=== PATIENT | female | born 1940 | race Caucasian/White ===

== ENCOUNTER → 2016-08-06 | Outpatient (CLI) | payer MEDICARE ==
[~2016-08-06] MED LIST: ASPI-621 PO; ATOR40TA PO; CLOP75TA22 PO; RAMI2.5C PO
== END | disposition home or self-care (01) ==
LOC: CFH 08:03
PROVIDERS: ATTEND Internal Medicine Cardiovascular Disease
DX: I08.3 Combined rheumatic disorders of mitral, aortic and tricuspid valves (principal); I37.1 Nonrheumatic pulmonary valve insufficiency; I51.7 Cardiomegaly; Z98.61 Coronary angioplasty status; Z95.5 Presence of coronary angioplasty implant and graft
CPT/HCPCS: 93306

== ENCOUNTER → 2016-08-07 | Outpatient (CLI) | payer MEDICARE ==
[~2016-08-07] MED LIST changes: +OMNIPAQUE 350 MG/ML, 100ML BOTTLE ONE
== END | disposition home or self-care (01) ==
LOC: CFH 07:42
PROVIDERS: ATTEND Internal Medicine Cardiovascular Disease
DX: I71.4 Abdominal aortic aneurysm, without rupture (principal); R93.8 Abnormal findings on diagnostic imaging of other specified body structures
CPT/HCPCS: 74174; 93978; Q9967

== ENCOUNTER 2017-01-06 05:36 | Day surgery (SDC) | payer MEDICARE ==
[~2017-01-06] VITALS: Ht 154.9 cm; Wt 62.7 kg
[~2017-01-06 05:36] MED LIST changes: -CLOP75TA22 PO; +CLOP75TA52 PO; -OMNIPAQUE 350 MG/ML, 100ML BOTTLE ONE
[2017-01-06 06:34] VITALS: BP 137/89
[2017-01-06] MEDS ORDERED: CARV6.252 PO (06:34)
[2017-01-06] MEDS ORDERED: ATOR-2 PO (06:34)
[2017-01-06] MEDS ORDERED: BUPR150T73 PO (06:34)
[2017-01-06] MEDS ORDERED: RAMI2.5C PO (06:34)
[2017-01-06] MEDS ORDERED: MIRA25TA PO (06:34)
[2017-01-06] MEDS ORDERED: ASPI-496 PO (06:34)
[2017-01-06 07:02] LABS: HEMATOCRIT 38.2 % (34.6-47.8); HEMOGLOBIN 12.5 g/dL (11.7-16.4); WHITE BLOOD COUNT 8.3 x10^3/uL (3.4-10)
[2017-01-06 07:10] LABS: BLOOD UREA NITROGEN 30 mg/dL (7-18)
[2017-01-06] MEDS ORDERED: LIDOCAINE 2%, 20ML ONE (07:17)
[2017-01-06] MEDS ORDERED: FLUMAZENIL 0.1 MG/1 ML, 5ML ONE (07:20)
[2017-01-06] MEDS ORDERED: MIDAZOLAM 1 MG/ML, 5ML ONE (07:20)
[2017-01-06] MEDS ORDERED: FENTANYL PF 100 MCG/2ML ONE ×2 (07:20)
[2017-01-06] MEDS ORDERED: NALOXONE 1 MG/ML, 2ML ONE (07:20)
[2017-01-06] MEDS ORDERED: HEPARIN 1,000 UNITS/ML, 10ML ONE (07:20)
[2017-01-06] MEDS ORDERED: NITROGLYCERIN 5 MG/ML, 10ML ONE (07:20)
[2017-01-06] MEDS ORDERED: PROTAMINE SULFATE 10 MG/ML, 25ML ONE (07:21)
[2017-01-06] MEDS ORDERED: VISIPAQUE 270 MG/ML, 150ML BOTTLE ONE (07:30)
== END 2017-01-06 13:15 ==
LOC: OUT 05:36
PROVIDERS: ATTEND Surgery
DX: I71.4 Abdominal aortic aneurysm, without rupture (principal); I72.2 Aneurysm of renal artery; I73.9 Peripheral vascular disease, unspecified; I10 Essential (primary) hypertension; Z90.710 Acquired absence of both cervix and uterus; Z98.890 Other specified postprocedural states; Z88.8 Allergy status to other drugs, medicaments and biological substances; Z87.891 Personal history of nicotine dependence
CPT/HCPCS: 36200; 36415; 75630; 80048; 85025; 99156; 99157; C1751; C1769; C1894; J1644; J2250; J3010; J3490; Q9966; J2720; J2310

== ENCOUNTER 2017-02-23 11:02 | Inpatient (IN) | payer MEDICARE ==
[~2017-02-23] VITALS: Ht 152.4 cm; Wt 71.3 kg
[~2017-02-23 11:02] MED LIST changes: +ASPI-496 PO; +ATOR-2 PO; +BUPR150T73 PO; +CARV6.252 PO; +CEFAZOLIN 1,000 MG ONE; +GLYCOPYRROLATE 0.2MG/1ML, 5ML ONE; +MIRA25TA PO; +NEOSTIGMINE 1 MG/ML, 10ML ONE; +ONDANSETRON 2MG/ML, 2ML ONE; +PHENYLEPHRINE 10 MG/ML ONE; +PROPOFOL 10 MG/ML, 20ML ONE; +ROCURONIUM 10 MG/ML,10ML ONE
[2017-02-23] MEDS ORDERED: THROMBIN 20,000 UNIT VIAL TP ONE (11:44)
[2017-02-23] MEDS ORDERED: BACITRACIN 50,000 UNIT ONE (11:44)
[2017-02-23] MEDS ORDERED: HEPARIN 1,000 UNITS/ML, 10ML ONE ×2 (11:44→14:53)
[2017-02-23] MEDS ORDERED: PROTAMINE SULFATE 10 MG/ML, 5ML ONE ×2 (11:44→11:50)
[2017-02-23] MEDS ORDERED: LACTATED RINGERS 1,000 ML IV SCH (11:55)
[2017-02-23] MEDS ORDERED: LIDOCAINE 1%, 2ML SQ PRN (12:00)
[2017-02-23 12:12] LABS: HEMATOCRIT 36.3 % (34.6-47.8); WHITE BLOOD COUNT 6.1 x10^3/uL (3.4-10)
[2017-02-23 12:20] LABS: BLOOD UREA NITROGEN 27 mg/dL (7-18)
[2017-02-23] MEDS ORDERED: FENTANYL PF 250 MCG/5ML ONE (12:47)
[2017-02-23] MEDS ORDERED: MIDAZOLAM 1 MG/ML, 2ML ONE (12:47)
[2017-02-23] MEDS ORDERED: LIDOCAINE GEL 2%, 5ML ONE (12:48)
[2017-02-23] MEDS ORDERED: ALBUMIN HUMAN 5% 1,000 ML ONE (13:26)
[2017-02-23] MEDS ORDERED: EPINEPHRINE 1 MG/ML, 1ML ONE ×4 (14:32)
[2017-02-23] MEDS ORDERED: CALCIUM CHLORIDE 10%, 10ML SYR ONE (16:34)
[2017-02-23] MEDS ORDERED: KETAMINE 10 MG/ML, 20ML ONE (17:03)
[2017-02-23] MEDS ORDERED: NEOSTIGMINE 1 MG/ML, 10ML ONE (17:21)
[2017-02-23] MEDS ORDERED: GLYCOPYRROLATE 0.2MG/1ML, 5ML ONE (17:21)
[2017-02-23] MEDS ORDERED: FENTANYL PF 100 MCG/2ML ONE ×2 (17:55→18:32)
[2017-02-23] MEDS ORDERED: LABETALOL 5MG/ML, 20ML ONE (18:00)
[2017-02-23 18:46] LABS: HEMATOCRIT 29.9 % (34.6-47.8); HEMOGLOBIN 9.9 g/dL (11.7-16.4); WHITE BLOOD COUNT 14.5 x10^3/uL (3.4-10)
[2017-02-23 18:51] LABS: BLOOD UREA NITROGEN 21 mg/dL (7-18)
[2017-02-23] MEDS ORDERED: MEPERIDINE/PF 25MG/0.5ML IVPush PRN (19:00)
[2017-02-23] MEDS ORDERED: FENTANYL PF 100 MCG/2ML IV PRN (19:00)
[2017-02-23] MEDS ORDERED: ONDANSETRON 2MG/ML, 2ML IVPush PRN (19:00)
[2017-02-23] MEDS ORDERED: PROMETHAZINE 25 MG/ML, 1ML IV PRN (19:00)
[2017-02-23] MEDS ORDERED: DIAZEPAM 5 MG/ML, 2ML IVPush PRN (19:00)
[2017-02-23] MEDS ORDERED: ALBUTEROL/IPRATROPIUM 2.5MG/0.5MG, 3 ML NPPB PRN (19:00)
[2017-02-23] MEDS ORDERED: MIDAZOLAM 1 MG/ML, 2ML IV PRN (19:00)
[2017-02-23] MEDS ORDERED: hydrALAzine 20 MG/ML, 1ML IV PRN (19:00)
[2017-02-23] MEDS ORDERED: HYDROmorphone 1 MG/ML, 1ML IV PRN (19:00)
[2017-02-23] MEDS ORDERED: LABETALOL 5MG/ML, 20ML IV PRN (19:00)
[2017-02-23] MEDS ORDERED: LORazepam 2 MG/ML, 1ML IVPush PRN (19:00)
[2017-02-23 19:18] LABS: DIFF TOTAL CELLS COUNTED 100 CELL DIFF
[2017-02-23 19:21] LABS: ANISOCYTOSIS 1+
[2017-02-23 19:23] LABS: VERIFY COUNTS? YES
[2017-02-23] MEDS ORDERED: NITROPRUSSIDE 100 MG in DEXTROSE 5% 246 ML IV PRN (20:30)
[2017-02-23] MEDS: LABETALOL 5MG/ML 40ML VIAL IVPush PRN ×2 (20:50→21:04)
[2017-02-23] MEDS: D5%-LACTATED RINGERS 1,000 ML IV SCH (21:05)
[2017-02-23] MEDS: CEFAZOLIN PMX 1GM/50ML 50 ML IVPB SCH (21:21)
[2017-02-23] MEDS: ENOXAPARIN 40 MG/0.4 ML SQ SCH (21:22)
[2017-02-24] MEDS: D5%-LACTATED RINGERS 1,000 ML IV SCH ×2 (02:59→19:32)
[2017-02-24] MEDS: ONDANSETRON 2MG/ML, 2ML IVPush PRN ×2 (02:59→13:41)
[2017-02-24 04:00] VITALS: BP 134/70
[2017-02-24] MEDS: CEFAZOLIN PMX 1GM/50ML 50 ML IVPB SCH ×2 (04:06→13:41)
[2017-02-24 04:27] LABS: HEMATOCRIT 30.6 % (34.6-47.8); HEMOGLOBIN 10.2 g/dL (11.7-16.4); WHITE BLOOD COUNT 11.6 x10^3/uL (3.4-10)
[2017-02-24 04:32] LABS: BLOOD UREA NITROGEN 21 mg/dL (7-18)
[2017-02-24 17:30] VITALS: BP 145/79
[2017-02-24 19:05] VITALS: BP 150/79
[2017-02-24] MEDS ORDERED: LACTATED RINGERS 500 ML IVBOLUS ONE (21:30)
[2017-02-24] MEDS: ENOXAPARIN 40 MG/0.4 ML SQ SCH (22:31)
[2017-02-25 02:02] VITALS: BP 153/79
[2017-02-25] MEDS: D5%-LACTATED RINGERS 1,000 ML IV SCH ×3 (03:58→23:04)
[2017-02-25 06:39] VITALS: BP 136/74
[2017-02-25 11:10] LABS: HEMATOCRIT 28.9 % (34.6-47.8); HEMOGLOBIN 9.8 g/dL (11.7-16.4); WHITE BLOOD COUNT 12.9 x10^3/uL (3.4-10)
[2017-02-25 11:15] LABS: BLOOD UREA NITROGEN 11 mg/dL (7-18)
[2017-02-25 11:18] LABS: IS PT STATUS REG ER OR PRE ER? NO
[2017-02-25] MEDS ORDERED: SODIUM CHLORIDE 0.9% 1,000ML IVBOLUS ONE (11:30)
[2017-02-25 13:25] VITALS: BP 150/86
[2017-02-25 14:30] VITALS: BP 152/80
[2017-02-25] MEDS: DIPHENHYDRAMINE 50 MG/ML, 1ML IVPush PRN ×2 (17:38→23:29)
[2017-02-25 18:43] VITALS: BP 114/71
[2017-02-25] MEDS: ENOXAPARIN 40 MG/0.4 ML SQ SCH (23:04)
[2017-02-25 23:24] VITALS: BP 126/79
[2017-02-26 04:43] VITALS: BP 146/81
[2017-02-26] MEDS: DIPHENHYDRAMINE 50 MG/ML, 1ML IVPush PRN ×2 (05:01→11:21)
[2017-02-26] MEDS: D5%-LACTATED RINGERS 1,000 ML IV SCH ×3 (06:51→22:08)
[2017-02-26 08:15] VITALS: BP 155/78
[2017-02-26 12:34] VITALS: BP 166/89
[2017-02-26 14:55] LABS: BLOOD UREA NITROGEN 7 mg/dL (7-18)
[2017-02-26 14:58] LABS: HEMATOCRIT 27.4 % (34.6-47.8); HEMOGLOBIN 9.2 g/dL (11.7-16.4); WHITE BLOOD COUNT 11.6 x10^3/uL (3.4-10)
[2017-02-26] MEDS: ONDANSETRON 2MG/ML, 2ML IVPush PRN (18:08)
[2017-02-26 19:04] VITALS: BP 165/90
[2017-02-26] MEDS: ENOXAPARIN 40 MG/0.4 ML SQ SCH (21:51)
[2017-02-27 01:02] VITALS: BP 169/91
[2017-02-27] MEDS ORDERED: LABETALOL 5MG/ML, 20ML ONE (01:04)
[2017-02-27 01:35] VITALS: BP 167/91
[2017-02-27] MEDS: LABETALOL 5MG/ML 40ML VIAL IVPush PRN (01:41)
[2017-02-27 01:55] VITALS: BP 147/83
[2017-02-27] MEDS: D5%-LACTATED RINGERS 1,000 ML IV SCH ×3 (03:20→18:48)
[2017-02-27 08:00] VITALS: BP 147/69
[2017-02-27] MEDS ORDERED: OXYcodone/APAP 5/325MG TABLET PO PRN ×2 (10:30)
[2017-02-27 15:40] VITALS: BP 152/68
[2017-02-27] MEDS: ONDANSETRON 2MG/ML, 2ML IVPush PRN (17:21)
[2017-02-27 20:08] VITALS: BP 146/80
[2017-02-27] MEDS: ENOXAPARIN 40 MG/0.4 ML SQ SCH (20:12)
[2017-02-28] MEDS: ONDANSETRON 2MG/ML, 2ML IVPush PRN (00:46)
[2017-02-28 00:51] VITALS: BP 151/85
[2017-02-28 04:56] VITALS: BP 152/83
[2017-02-28] MEDS: D5%-LACTATED RINGERS 1,000 ML IV SCH (07:18)
[2017-02-28 08:13] VITALS: BP 161/88
[2017-02-28] MEDS: ACETAMINOPHEN 325 MG TABLET PO PRN (12:58)
[2017-02-28 14:35] VITALS: BP 137/80
[2017-02-28 19:16] VITALS: BP 151/82
[2017-02-28] MEDS: ENOXAPARIN 40 MG/0.4 ML SQ SCH (20:43)
[2017-03-01 02:30] VITALS: BP 155/80
[2017-03-01 07:31] VITALS: BP 160/84
[2017-03-01] MEDS: D5%-LACTATED RINGERS 1,000 ML IV SCH ×2 (09:00→22:11)
[2017-03-01] MEDS ORDERED: BISACODYL 5 MG EC TABLET ONE (10:09)
[2017-03-01] MEDS ORDERED: BISACODYL 5 MG EC TABLET PO PRN (10:30)
[2017-03-01 12:55] VITALS: BP 153/83
[2017-03-01 20:02] VITALS: BP 147/79
[2017-03-01] MEDS: ENOXAPARIN 40 MG/0.4 ML SQ SCH (21:31)
[2017-03-02 02:58] VITALS: BP 156/82
[2017-03-02 08:30] VITALS: BP 144/79
[2017-03-02] MEDS: D5%-LACTATED RINGERS 1,000 ML IV SCH (11:40)
[2017-03-02 15:45] VITALS: BP 164/90
[2017-03-02 17:15] VITALS: BP 165/88
[2017-03-02] MEDS ORDERED: HYDR-3240 PO (17:34)
[2017-03-02] MEDS: ACETAMINOPHEN 325 MG TABLET PO PRN (18:18)
== END 2017-03-02 18:30 | disposition home or self-care (01) | DRG 268 ==
LOC: ORIP 11:02 → UNDOADMIN 11:02 → ICU 20:19 → 4NOR 02-24 17:22
PROVIDERS: ADMIT Surgery; ATTEND Surgery
PROC: 04CC0ZZ Extirpation of Matter from Right Common Iliac Artery, Open Approach (ICD-10-PCS; 2017-02-23)
PROC: 04CL0ZZ Extirpation of Matter from Left Femoral Artery, Open Approach (ICD-10-PCS; 2017-02-23)
PROC: 04100JJ Bypass Abdominal Aorta to Left Femoral Artery with Synthetic Substitute, Open Approach (ICD-10-PCS; 2017-02-23)
PROC: 30233N1 Transfusion of Nonautologous Red Blood Cells into Peripheral Vein, Percutaneous Approach (ICD-10-PCS; 2017-02-23)
PROC: 041C0JH Bypass Right Common Iliac Artery to Right Femoral Artery with Synthetic Substitute, Open Approach (ICD-10-PCS; 2017-02-23)
PROC: 04C00ZZ Extirpation of Matter from Abdominal Aorta, Open Approach (ICD-10-PCS; principal; 2017-02-23 13:00)
DX: I71.4 Abdominal aortic aneurysm, without rupture (principal); E43 Unspecified severe protein-calorie malnutrition; I74.5 Embolism and thrombosis of iliac artery; I73.9 Peripheral vascular disease, unspecified; Z79.82 Long term (current) use of aspirin; Z79.899 Other long term (current) drug therapy
CPT/HCPCS: 36415; 71010; 80048; 81001; 82040; 82330; 82803; 82947; 82962; 83605; 84132; 84295; 84484; 85014; 85025; 86850; 86900; 86923; 87040; 87081; 93005; J0171; J0690; J1644; J1650; J2250; J2270; J2405; J2704; J2710; J2720; J3010; J3490; J7060; J7120; P9045; C1768; J1200; J2370; J7030; J7121; P9016

== ENCOUNTER → 2018-09-07 | Outpatient (CLI) | payer MEDICARE ==
[~2018-09-07] MED LIST changes: -ASPI-621 PO; +ASPI81TA45 PO; -CEFAZOLIN 1,000 MG ONE; -GLYCOPYRROLATE 0.2MG/1ML, 5ML ONE; +HYDR-3240 PO; -NEOSTIGMINE 1 MG/ML, 10ML ONE; -ONDANSETRON 2MG/ML, 2ML ONE; -PHENYLEPHRINE 10 MG/ML ONE; -PROPOFOL 10 MG/ML, 20ML ONE; -RAMI2.5C PO; +RAMI2.5C2 PO; -ROCURONIUM 10 MG/ML,10ML ONE
== END | disposition home or self-care (01) ==
LOC: CFH 13:18
PROVIDERS: ATTEND Internal Medicine Cardiovascular Disease
DX: I08.2 Rheumatic disorders of both aortic and tricuspid valves (principal); E78.5 Hyperlipidemia, unspecified
CPT/HCPCS: 93306

== ENCOUNTER → 2020-02-22 | Outpatient (CLI) | payer MEDICARE | END | disposition home or self-care (01) | LOC: CFH 09:40 | PROVIDERS: ATTEND Internal Medicine Cardiovascular Disease | DX: I35.8 Other nonrheumatic aortic valve disorders (principal); I25.10 Atherosclerotic heart disease of native coronary artery without angina pectoris | CPT/HCPCS: 93306 ==